=== PATIENT | female | born 1985 | race American Indian/Alaskan Native ===

== ENCOUNTER 2020-04-30 11:06 | Emergency (ER) | payer MEDICAID ==
[2020-04-30 11:20] VITALS: BP 144/95; PULSE 113
[2020-04-30] MEDS ORDERED: Cyclobenzaprine 10 MG Tab PO ONE (11:51)
--- NOTE | 2020-04-30 11:53 | EDM.PDOC ---
ED HPI GENERAL MEDICAL PROBLEM - General Chief Complaint: General Stated Complaint: COUGHING,CHEST PAIN Time Seen by Provider: 04/30/20 11:45 Source of Information: Reports: Patient, RN Notes Reviewed History Limitations: Reports: No Limitations - History of Present Illness INITIAL COMMENTS - FREE TEXT/NARRATIVE: 34-year-old female presents emergency department day with multiple chronic complaints she is very poor historian difficult to understand she has some concerns about lice some concerns about chest pain she has had some black flecks in her emesis she states her stool looks like tobacco and her abdomen is bloated, with right arm pain denies any trauma states all the symptoms have been going on for the last couple of days - Related Data Allergies Allergy/AdvReac Type Severity Reaction Status Date / Time No Known Allergies Allergy Verified 04/30/20 11:26 Home Meds: Home Meds Gabapentin [Neurontin] 1 tab PO TID 04/30/20 [History] Omeprazole 1 tab PO 04/30/20 [History] traZODone 1.5 tab PO BEDTIME 04/30/20 [History] Past Medical History Musculoskeletal History: Reports: Back Pain, Chronic Psychiatric History: Reports: Depression - Past Surgical History GI Surgical History: Reports: Cholecystectomy Social & Family History - Tobacco Use Tobacco Use Status *Q: Current Every Day Tobacco User Years of Tobacco use: 1 Packs/Tins Daily: 0.5 ED ROS GENERAL - Review of Systems Review Of Systems: See Below Constitutional: Reports: Weakness, Fatigue. Denies: Fever, Chills HEENT: Reports: No Symptoms Respiratory: Reports: No Symptoms Cardiovascular: Reports: Chest Pain GI/Abdominal: Reports: Distension, Vomiting : Reports: No Symptoms ED EXAM, GENERAL - Physical Exam Exam: See Below Exam Limited By: No Limitations General Appearance: Alert, WD/WN, No Apparent Distress Respiratory/Chest: No Respiratory Distress, Lungs Clear, Normal Breath Sounds, No Accessory Muscle Use, Chest Non-Tender Cardiovascular: Regular Rate, Rhythm, No Murmur GI/Abdominal: Soft, Non-Tender Course - Vital Signs Last Recorded V/S: Last Vital Signs Temp 97.9 F 04/30/20 11:34 Pulse 113 H 04/30/20 11:34 Resp 17 04/30/20 11:34 BP 144/95 H 04/30/20 11:34 Pulse Ox 97 04/30/20 11:34 - Orders/Labs/Meds Labs: Laboratory Tests 04/30/20 04/30/20 04/30/20 Range/Units 11:55 11:55 11:55 WBC 8.5 (4.5-11.0) K/uL RBC 4.75 (3.30-5.50) M/uL Hgb 13.5 D (12.0-15.0) g/dL Hct 40.4 (36.0-48.0) % MCV 85 (80-98) fL MCH 28 (27-31) pg MCHC 33 (32-36) % Plt Count 313 (150-400) K/uL Neut % (Auto) 67 H (36-66) % Lymph % (Auto) 25 (24-44) % [place] % (Auto) 7 H (2-6) % Eos % (Auto) 1 L (2-4) % Baso % (Auto) 0 (0-1) % Sodium 141 (140-148) mmol/L Potassium 3.6 (3.6-5.2) mmol/L Chloride 106 (100-108) mmol/L Carbon Dioxide 27 (21-32) mmol/L Anion Gap 8.0 (5.0-14.0) mmol/L BUN 9 (7-18) mg/dL Creatinine 0.6 (0.6-1.0) mg/dL Est Cr Clr Drug Dosing 111.93 mL/min Estimated GFR (MDRD) > 60 (>60) Glucose 90 (74-106) mg/dL Calcium 8.7 (8.5-10.1) mg/dL Total Bilirubin 0.4 (0.2-1.0) mg/dL AST 18 (15-37) U/L ALT 30 (12-78) U/L Alkaline Phosphatase 104 (46-116) U/L Troponin I < 0.017 (0.000-0.056) ng/mL Total Protein 7.1 (6.4-8.2) g/dL Albumin 3.9 (3.4-5.0) g/dL Globulin 3.2 (2.3-3.5) g/dL Albumin/Globulin Ratio 1.2 (1.2-2.2) Urine Color (YELLOW) Urine Appearance (CLEAR) Urine pH (5.0-8.0) Ur Specific [place] (1.008-1.030) Urine Protein (NEGATIVE) mg/dL Urine Glucose (UA) (NEGATIVE) mg/dL Urine Ketones (NEGATIVE) mg/dL Urine Occult Blood (NEGATIVE) Urine Nitrite (NEGATIVE) Urine Bilirubin (NEGATIVE) Urine Urobilinogen (0.2-1.0) EU/dL Ur Leukocyte Esterase (NEGATIVE) Urine RBC (0-5) Urine WBC (0-5) Ur Epithelial Cells Amorphous Sediment Urine Bacteria Urine Mucus Urine Opiates Screen (NEGATIVE) Ur Oxycodone Screen (NEGATIVE) Urine Methadone Screen (NEGATIVE) Ur Propoxyphene Screen (NEGATIVE) Ur Barbiturates Screen (NEGATIVE) Ur Tricyclics Screen (NEGATIVE) Ur Phencyclidine Scrn (NEGATIVE) Ur Amphetamine Screen (NEGATIVE) U Methamphetamines Scrn (NEGATIVE) Urine MDMA Screen (NEGATIVE) U Benzodiazepines Scrn (NEGATIVE) U Cocaine Metab Screen (NEGATIVE) U Marijuana (THC) Screen (NEGATIVE) 04/30/20 04/30/20 Range/Units 13:22 13:22 WBC (4.5-11.0) K/uL RBC (3.30-5.50) M/uL Hgb (12.0-15.0) g/dL Hct (36.0-48.0) % MCV (80-98) fL MCH (27-31) pg MCHC (32-36) % Plt Count (150-400) K/uL Neut % (Auto) (36-66) % Lymph % (Auto) (24-44) % [place] % (Auto) (2-6) % Eos % (Auto) (2-4) % Baso % (Auto) (0-1) % Sodium (140-148) mmol/L Potassium (3.6-5.2) mmol/L Chloride (100-108) mmol/L Carbon Dioxide (21-32) mmol/L Anion Gap (5.0-14.0) mmol/L BUN (7-18) mg/dL Creatinine (0.6-1.0) mg/dL Est Cr Clr Drug Dosing mL/min Estimated GFR (MDRD) (>60) Glucose (74-106) mg/dL Calcium (8.5-10.1) mg/dL Total Bilirubin (0.2-1.0) mg/dL AST (15-37) U/L ALT (12-78) U/L Alkaline Phosphatase (46-116) U/L Troponin I (0.000-0.056) ng/mL Total Protein (6.4-8.2) g/dL Albumin (3.4-5.0) g/dL Globulin (2.3-3.5) g/dL Albumin/Globulin Ratio (1.2-2.2) Urine Color Yellow (YELLOW) Urine Appearance Slightly cloudy A (CLEAR) Urine pH 6.0 (5.0-8.0) Ur Specific [place] >= 1.030 (1.008-1.030) Urine Protein Negative (NEGATIVE) mg/dL Urine Glucose (UA) Negative (NEGATIVE) mg/dL Urine Ketones Negative (NEGATIVE) mg/dL Urine Occult Blood Negative (NEGATIVE) Urine Nitrite Negative (NEGATIVE) Urine Bilirubin Negative (NEGATIVE) Urine Urobilinogen 2.0 H (0.2-1.0) EU/dL Ur Leukocyte Esterase Negative (NEGATIVE) Urine RBC 0-5 (0-5) Urine WBC 0-5 (0-5) Ur Epithelial Cells Few Amorphous Sediment Not seen Urine Bacteria Few Urine Mucus Many Urine Opiates Screen Negative (NEGATIVE) Ur Oxycodone Screen Negative (NEGATIVE) Urine Methadone Screen Presumptive positive H (NEGATIVE) Ur Propoxyphene Screen Negative (NEGATIVE) Ur Barbiturates Screen Negative (NEGATIVE) Ur Tricyclics Screen Presumptive positive H (NEGATIVE) Ur Phencyclidine Scrn Negative (NEGATIVE) Ur Amphetamine Screen Presumptive positive H (NEGATIVE) U Methamphetamines Scrn Presumptive positive H (NEGATIVE) Urine MDMA Screen Presumptive positive H (NEGATIVE) U Benzodiazepines Scrn Negative (NEGATIVE) U Cocaine Metab Screen Negative (NEGATIVE) U Marijuana (THC) Screen Negative (NEGATIVE) Meds: Medications Discontinued Medications Generic Name Dose Route Start Last Admin Trade Name Freq PRN Reason Stop Dose Admin Cyclobenzaprine HCl 10 mg 04/30/20 11:51 04/30/20 12:30 Flexeril PO 04/30/20 11:52 10 mg ONETIME ONE Administration Departure - Departure Time of Disposition: 13:42 Disposition: Home, Self-Care 01 Condition: Poor Clinical Impression: Hand tingling Qualifiers: Laterality: right Qualified Code(s): R20.2 - Paresthesia of skin - Discharge Information Instructions: Paresthesia, [id number] Referrals: Parker Herrera MD [Primary Care Provider] - Forms: ED Department Discharge Additional Instructions: Continue with your regular medications please followup with your primary care provider in 3-5 days if not better, please call return to the emergency department with worsening of symptoms., Sepsis Event Note (ED) - Evaluation Sepsis Screening Result: No Definite Risk - Focused Exam Vital Signs: Vital Signs Temp Pulse Resp BP Pulse Ox 04/30/20 11:34 97.9 F 113 H 17 144/95 H 97 04/30/20 11:19 97.9 F 113 H 17 144/95 H 97 - Assessment/Plan Plan: Assessment Acuity = acute Site and laterality = numbness right hand Etiology = unknown Manifestations = none Location of injury = Home Lab values = CBC, CMP unremarkable urinalysis unremarkable urine drug screen positive for multiple substances Plan I am suspicious she is under the influence of multiple substances and having hallucinations about what she describes that is why her history is so difficult to follow is can have her follow-up with her primary care for further evaluation This note was dictated using [employer] voice recognition software please call with any questions on syntax or grammar.
== END 2020-04-30 14:04 | disposition home or self-care (01) ==
LOC: JP.ED 11:06
DX: R20.2 Paresthesia of skin (principal); Z72.0 Tobacco use; Z79.899 Other long term (current) drug therapy
CPT/HCPCS: 36415; 80053; 80305; 81001; 84484; 85025; 99284; A9270; 99283

== ENCOUNTER 2022-05-17 21:31 | Emergency (ER) | payer MEDICAID ==
[2022-05-17] MEDS: Ondansetron 4 MG Tab.DIS PO ONE (21:45)
[2022-05-17 22:16] LABS: ESTIMATED GFR 118 mL/min (>60)
[2022-05-17 22:28] VITALS: BP 125/76; PULSE 90
[2022-05-17] MEDS: HYDROmorphone 0.5 MG/0.5 ML Syringe IVPUSH ONE (22:32)
[2022-05-17] MEDS: Ketorolac 10 MG Tab PO ONE (23:06)
[2022-05-17] MEDS: Bacitracin Oint 1 GM U/D Packet TOP ONE (23:07)
== END 2022-05-17 23:20 | disposition home or self-care (01) ==
LOC: JP.ED 21:31
DX: S06.0X0A Concussion without loss of consciousness, initial encounter (principal); S05.11XA Contusion of eyeball and orbital tissues, right eye, initial encounter; Y04.2XXA Assault by strike against or bumped into by another person, initial encounter
CPT/HCPCS: 36415; 70450; 70486; 73030; 80053; 80307; 85025; 85610; 85730; 96374; 99284; A9270; J1170; Q0162; 99283